=== PATIENT | female | born 1960 | race Caucasian/White ===

== ENCOUNTER 2017-10-21 05:30 | Emergency (ER) | payer OTHER | END 2017-10-21 08:43 | disposition home or self-care (01) | LOC: FTE 05:30 | DX: R05 Cough (principal) | CPT/HCPCS: 71045; 99283-25 ==

== ENCOUNTER 2018-03-01 16:33 | Emergency (ER) | payer OTHER ==
[2018-03-01] MEDS: traMADol 50 MG TAB PO (17:01)
[2018-03-01] MEDS: ACETAMINOPHEN 325 MG TAB PO (17:10)
== END 2018-03-01 18:38 | disposition home or self-care (01) ==
LOC: FTE 18:38
DX: M25.561 Pain in right knee (principal)
CPT/HCPCS: 72170; 73510; 73562; 99284-25

== ENCOUNTER 2018-03-03 14:53 | Emergency (ER) | payer OTHER | END 2018-03-03 15:40 | disposition home or self-care (01) | LOC: FTE 14:53 | DX: S90.822A Blister (nonthermal), left foot, initial encounter (principal); S90.821A Blister (nonthermal), right foot, initial encounter; X58.XXXA Exposure to other specified factors, initial encounter; Y92.9 Unspecified place or not applicable | CPT/HCPCS: 99283; Z7502 ==

== ENCOUNTER 2019-03-12 16:33 | Emergency (ER) | payer OTHER ==
[2019-03-12] MEDS: HYDROCODONE/APAP (5/325) TAB PO (17:11)
== END 2019-03-12 21:00 | disposition home or self-care (01) ==
LOC: FTE 16:33
DX: M25.562 Pain in left knee (principal)
CPT/HCPCS: 29505; 73562; 99283-25